=== PATIENT | female | born 1940 | race Caucasian/White ===

== ENCOUNTER 2018-12-18 17:22 | Inpatient (IN) | payer OTHER ==
[~2018-12-18] VITALS: Ht 165.1 cm; Wt 103.2 kg
[~2018-12-18 17:22] MED LIST: ETOMIDATE 40 MG/20 ML ONE; PROPOFOL 10 MG/ML, 100ML IV ONE; VECURONIUM 10 MG ONE
--- NOTE | 2018-12-18 17:30 | NUR ---
TASK RN: MARC CUELLAR FROM W/ CO WORSENING SOB AND DRY COUGH X TODAY. HX OF CHRONIC BRONCHITIS. NO IMPROVEMENT W/ HOME INHALER TODAY. PT ARRIVES W MILD INCREASE IN WOB, FORCED INHILATIONS. PT CALM, SPEAKING IN FULL SENTENCES. RA SPO2 86%, SPO2 TO 96% ON 3L BY NC. NO BASELINE O2 NEEDS. GIVEN DUO NEB AT AND ALBUTEROL W/ REMSA. PT REPORTS IMPROVEMENT IN WOB W/ BREATHING TX. BP/SPO2/ECG MONITOR IN PLACE. SINUS TACH ON MONITOR. EKG COMPLETED BY [facility]. PRIMARY RN, AMBREEN UPDATED.
[2018-12-18] MEDS ORDERED: GLIP5TAB10 PO (17:43)
[2018-12-18] MEDS ORDERED: LEVO25TA4 PO (17:43)
[2018-12-18 18:21] LABS: BASOPHILS # (AUTO) 0.01 x10^3/uL (0-0.1); BASOPHILS % (AUTO) 0 % (0-1); EOSINOPHILS # (AUTO) 0.27 x10^3/uL (0-0.4); EOSINOPHILS % (AUTO) 4 % (1-7); LYMPHOCYTES # (AUTO) 1.17 x10^3/uL (1-3.4); LYMPHOCYTES % (AUTO) 16 % (22-44); MD NO; MEAN CORPUSCULAR HGB CONC 30.6 g/dL (32.4-35.8); MEAN CORPUSCULAR VOLUME 65.3 fL (80-100); MEAN PLATELET VOLUME 8.9 fL (7.4-10.4); MONOCYTES # (AUTO) 0.79 x10^3/uL (0.2-0.8); MONOCYTES % (AUTO) 11 % (2-9); NEUTROPHILS # (AUTO) 5.21 x10^3/uL (1.8-6.8); NEUTROPHILS % (AUTO) 70 % (42-75); PLATELET COUNT 258 x10^3/uL (130-400); RED BLOOD COUNT 4.45 x10^6/uL (3.82-5.3); RED CELL DISTRIBUTION WIDTH 19.9 % (9.6-15.2)
[2018-12-18 18:33] LABS: ALBUMIN 3.3 g/dL (3.4-5.0); ANION GAP 5 mmol/L (5-15); CALCIUM 8.7 mg/dL (8.5-10.1); CHLORIDE 104 mmol/L (98-107); CREATININE 0.93 mg/dL (0.55-1.02)
--- NOTE | 2018-12-18 19:20 | NUR ---
REPORT RECEIVED AND CARE ASSUMED. PT UP TO BR WITH ASSIST AND W/C. ATTEMPTED RA TRIAL PER ERP REQUEST. PT BECAME INCREASINGLY SOB WITH MOVING. RA 83% AFTER RESTING. PLACED BACK ON 3L NC. ERP TO BE UPDATED TO PT STATUS. PT MEDICATED PER MAR WITH PREDNISONE.
--- NOTE | 2018-12-18 20:15 | NUR ---
[facility]
--- NOTE | 2018-12-18 20:39 | NUR ---
UPON RETURN FROM CT. PT MORE SOB AND ANXIOUS. WHEEZES NOW HEARD. PT MORE TACHY ON MONITOR AND HTN. PT STATES SHE DOES HAVE HX OF ANXIETY BUT IS FEELING ANXIOUS BECAUSE SHE CAN'T BREATH. ERP NOTIFIED AND AT BEDSIDE TO RECHECK. ORDERS RECEIVED AND RESP CALLED.
[2018-12-18] MEDS ORDERED: MAGNESIUM SULFATE PMX 2GM/50ML 50 ML ONE (20:42)
[2018-12-18] MEDS ORDERED: ALBUTEROL/IPRATROPIUM 2.5MG/0.5MG, 3 ML ONE (20:44)
[2018-12-18] MEDS ORDERED: ALBUTEROL 0.5%, 20ML ONE (20:51)
[2018-12-18] MEDS ORDERED: LORazepam 2 MG/ML, 1ML ONE (20:55)
[2018-12-18] MEDS: LORazepam 2 MG/ML, 1ML IVPush PRN ×2 (20:59→21:21)
[2018-12-18] MEDS ORDERED: MAGNESIUM SULFATE PMX 2GM/50ML 50 ML IVPB ONE (21:00)
[2018-12-18] MEDS ORDERED: ALBUTEROL/IPRATROPIUM 2.5MG/0.5MG, 3 ML NPPB ONE (21:00)
--- NOTE | 2018-12-18 21:00 | NUR ---
PT STATES NO RELIEF AFTER BREATHING TX--NOW PLACED ON CONTINUOUS TX. DISCUSSED WITH ERP AND ORDER FOR ATIVAN RECEIVED.
--- NOTE | 2018-12-18 21:14 | NUR ---
PT TRANSFERED TO TRAUMA 3. PT PLACED ON BI-PAP. IPAP OF 15 AND EPAP OF 5. TV 500. PT OXYGENATION IMPROVING. PT STILL VERY ANXIOUS. INFORMED. SECOND PIV BEING PLACED AND REPEAT EKG BEING ACQUIRED.
--- NOTE | 2018-12-18 21:15 | NUR ---
PT ON CONTINUOUS BREATHING TX. MEDICATED FOR ANXIETY. CONTINUES TO APPEAR SEVERELY SOB. RESP THERAPIST AT BEDSIDE AND REQUESTING TO PLACE PT ON BIPAP. ERP AWARE AND REQUESTING PT TO BE MOVED TO TRAUMA. REPORT GIVEN TO ALTAGRACIA Tao RN.
--- NOTE | 2018-12-18 21:21 | NUR ---
PT GIVEN 0.5MG OF ATIVAN TO HELP ANXIETY.
[2018-12-18 21:23] LABS: TROPONIN I < 0.015 ng/mL (0.000-0.045)
[2018-12-18] MEDS ORDERED: VECURONIUM 10 MG IVPush ONE (22:00)
[2018-12-18] MEDS ORDERED: ETOMIDATE 40 MG/20 ML IVPush ONE (22:00)
[2018-12-18] MEDS ORDERED: FUROSEMIDE 40 MG/4 ML IVPush ONE (22:00)
[2018-12-18] MEDS ORDERED: PROPOFOL 100 ML IV PRN (22:00)
[2018-12-18] MEDS ORDERED: SODIUM CHLORIDE 0.9% 1,000 ML IV SCH (22:24)
[2018-12-18] MEDS ORDERED: GUAIFENESIN/DM 200-20MG, 10ML UDC PO PRN (22:30)
[2018-12-18] MEDS ORDERED: ACETAMINOPHEN 325 MG TABLET PO PRN (22:30)
[2018-12-18] MEDS ORDERED: ONDANSETRON 2MG/ML, 2ML IVPush PRN (22:30)
[2018-12-18] MEDS ORDERED: POLYETHYLENE GLYCOL 17 GM PACKET PO PRN (22:30)
--- NOTE | 2018-12-18 22:46 | NUR ---
Note omeroone in EDM - 12/18/18 at 2249 by MYORK LATE ENTRY 2140 PT GIVEN PARALYTIC FOR INTUBATION. PT GIVEN 8MG OF VEC AND 20MG OF ETOMIDATE. PT THEN INTUBATED BY WITH 7.5 ET TUBE. PT TUBE SECURED AT 21CM. VENT SETTINGS OF AC, VT 500, RATE OF 16, PEEP OF 5.0, 50% FIO2. PT THEN HAD NG TUBE AND COLLINS PLACED IN PT. PT REPORT CALLED TO GAIL HUTCHISON. TRANSFER WITHOUT COMPLICATIONS. PT PLACED ON PROPAFOL DRIP PRIOR TO TRANSFER AT 10ML/HR.
--- NOTE | 2018-12-18 22:49 | NUR ---
LATE ENTRY 2139 PT GIVEN PARALYTIC FOR INTUBATION. PT GIVEN 8MG OF VEC AND 20MG OF ETOMIDATE. PT THEN INTUBATED BY WITH 7.5 ET TUBE. PT TUBE SECURED AT 21CM. VENT SETTINGS OF AC, VT 500, RATE OF 16, PEEP OF 5.0, 50% FIO2. PT THEN HAD NG TUBE AND COLLINS PLACED IN PT. PT REPORT CALLED TO GAIL HUTCHISON. TRANSFER WITHOUT COMPLICATIONS. PT PLACED ON PROPAFOL DRIP PRIOR TO TRANSFER AT 10ML/HR.
[2018-12-18] MEDS: PROPOFOL 100 ML IV PRN (22:50)
[2018-12-18 22:59] VITALS: BP 152/89
[2018-12-18] MEDS ORDERED: OMNIPAQUE 350 MG/ML, 100ML BOTTLE ONE (23:29)
[2018-12-18] MEDS ORDERED: SENNOSIDES 8.8 MG/5 ML ORAL SOL NG PRN (23:30)
[2018-12-18] MEDS ORDERED: BISACODYL 10 MG SUPP PR PRN (23:30)
[2018-12-18] MEDS ORDERED: CEFTRIAXONE 1,000 MG IVPB SCH (23:30)
[2018-12-18] MEDS ORDERED: SENNA/DOCUSATE TABLET NG PRN (23:30)
[2018-12-18] MEDS ORDERED: LIDOCAINE-MPF 1%, 2ML ENDO PRN (23:30)
[2018-12-18] MEDS ORDERED: LACTULOSE 20 GM/30 ML UDC NG PRN (23:30)
[2018-12-18] MEDS: ALBUTEROL/IPRATROPIUM 2.5MG/0.5MG, 3 ML INLINE SCH (23:30)
[2018-12-18] MEDS ORDERED: GLUCAGON 1 MG IM PRN (23:30)
[2018-12-18] MEDS ORDERED: DEXTROSE 50%, 50ML SYRINGE IVPush PRN (23:30)
[2018-12-18] MEDS ORDERED: PHARMACY MAY ADJ FOR RENAL FX MC SCH (23:30)
[2018-12-18] MEDS ORDERED: DEXTROSE 4 GM TAB.CHEW PO PRN (23:30)
[2018-12-18] MEDS: methylPREDNISolone SOD SUCC 40 MG/ML IVPush SCH (23:48)
[2018-12-18] MEDS: DOXYCYCLINE 100 MG in DEXTROSE 5% 250 ML IV SCH (23:48)
[2018-12-18] MEDS: ENOXAPARIN 40 MG/0.4 ML SQ SCH (23:49)
[2018-12-18] MEDS: CEFTRIAXONE PMX 1GM/50ML 50 ML IV SCH (23:49)
[2018-12-19 00:06] LABS: TROPONIN I 0.229 ng/mL (0.000-0.045)
[2018-12-19 00:12] LABS: THYROID STIMULATING HORMONE 0.021 mIU/L (0.358-3.740)
[2018-12-19] MEDS: FENTANYL PF 100 MCG/2ML IVPush PRN ×2 (00:17→07:36)
[2018-12-19 00:32] LABS: MICROSCOPIC AUTO
[2018-12-19 00:49] LABS: CULTURE INDICATED? YES
[2018-12-19] MEDS: PROPOFOL 100 ML IV PRN ×2 (01:28→06:01)
[2018-12-19] MEDS: ALBUTEROL/IPRATROPIUM 2.5MG/0.5MG, 3 ML INLINE SCH ×2 (02:31→07:15)
[2018-12-19 04:00] VITALS: BP 138/68
[2018-12-19] MEDS: methylPREDNISolone SOD SUCC 40 MG/ML IVPush SCH ×4 (04:21→22:09)
[2018-12-19 04:30] LABS: BASOPHILS # (AUTO) 0.06 x10^3/uL (0-0.1); BASOPHILS % (AUTO) 1 % (0-1); EOSINOPHILS # (AUTO) 0.02 x10^3/uL (0-0.4); EOSINOPHILS % (AUTO) 0 % (1-7); LYMPHOCYTES # (AUTO) 0.47 x10^3/uL (1-3.4); LYMPHOCYTES % (AUTO) 7 % (22-44); MD NO; MEAN CORPUSCULAR HEMOGLOBIN 20.1 pg (27.0-34.8); MEAN CORPUSCULAR HGB CONC 31.1 g/dL (32.4-35.8); MEAN CORPUSCULAR VOLUME 64.5 fL (80-100); MEAN PLATELET VOLUME 8.1 fL (7.4-10.4); MONOCYTES # (AUTO) 0.06 x10^3/uL (0.2-0.8); MONOCYTES % (AUTO) 1 % (2-9); NEUTROPHILS # (AUTO) 6.54 x10^3/uL (1.8-6.8); NEUTROPHILS % (AUTO) 92 % (42-75); PLATELET COUNT 225 x10^3/uL (130-400); RED BLOOD COUNT 4.59 x10^6/uL (3.82-5.3); RED CELL DISTRIBUTION WIDTH 19.6 % (9.6-15.2)
[2018-12-19 04:43] LABS: ANION GAP 8 mmol/L (5-15); CALCIUM 9.1 mg/dL (8.5-10.1); CHLORIDE 100 mmol/L (98-107); CREATININE 1.06 mg/dL (0.55-1.02)
[2018-12-19 04:46] LABS: TROPONIN I 0.491 ng/mL (0.000-0.045)
[2018-12-19] MEDS ORDERED: INSULIN LISPRO 100 UNITS/ML, PEN SQ-INSULIN SCH ×2 (07:00→12:00)
[2018-12-19] MEDS: FAMOTIDINE 20 MG/2 ML IVPush SCH ×2 (07:36→20:40)
[2018-12-19 08:41] LABS: % IRON SATURATION 3 % (20-55); IRON LEVEL 14 mcg/dL (50-170); TOTAL IRON BINDING CAPACITY 441 mcg/dL (250-450)
[2018-12-19 08:44] LABS: FREE T4 (FREE THYROXINE) 1.29 ng/dL (0.76-1.46); TROPONIN I 0.486 ng/mL (0.000-0.045)
[2018-12-19] MEDS ORDERED: BENZONATATE 100 MG CAPSULE PO SCH (09:00)
[2018-12-19] MEDS: SODIUM CHLORIDE FLUSH 10ML SYR IVF SCH ×2 (09:05→20:40)
[2018-12-19] MEDS ORDERED: MEMA10TA PO (10:55)
[2018-12-19] MEDS ORDERED: METO25TA35 PO (10:55)
[2018-12-19] MEDS ORDERED: EXEN2AUT INJ (10:55)
[2018-12-19] MEDS ORDERED: LEVO200T5 PO (10:55)
[2018-12-19] MEDS ORDERED: MILK175T2 PO (10:55)
[2018-12-19] MEDS ORDERED: SERT100T32 PO (10:55)
[2018-12-19] MEDS ORDERED: LEVO1CAP PO (10:55)
[2018-12-19] MEDS ORDERED: BRIM5DRO4 EACHEYE (10:55)
[2018-12-19] MEDS ORDERED: ALPR0.5T6 PO (10:55)
[2018-12-19] MEDS ORDERED: GLIP2.5T3 PO (10:55)
[2018-12-19] MEDS ORDERED: TIMO5DRO33 EACHEYE (10:55)
[2018-12-19] MEDS ORDERED: QUIN20TA17 PO (10:55)
[2018-12-19] MEDS: DOXYCYCLINE 100 MG in DEXTROSE 5% 250 ML IV SCH ×2 (11:39→22:08)
[2018-12-19] MEDS ORDERED: [UNRECOGNIZED DRUG - OTHER] PO SCH (12:30)
[2018-12-19] MEDS ORDERED: LEVOTHYROXINE 200 MCG TABLET PO SCH (12:30)
[2018-12-19] MEDS ORDERED: LEVOMEFOLATE PO SCH (12:30)
[2018-12-19] MEDS ORDERED: ALGAL OIL PO SCH (12:30)
[2018-12-19] MEDS ORDERED: LEVOTHYROXINE MC SCH (12:30)
[2018-12-19] MEDS ORDERED: TIMOLOL EYE MC SCH (12:30)
[2018-12-19] MEDS: LEVOTHYROXINE 200 MCG TABLET PO SCH (12:35)
[2018-12-19] MEDS ORDERED: LEVOTHYROXINE 100 MCG TABLET ONE (12:38)
[2018-12-19] MEDS: METOPROLOL TARTRATE 25 MG TABLET PO SCH (12:41)
[2018-12-19] MEDS: LEVOTHYROXINE 25 MCG TABLET PO SCH (12:41)
[2018-12-19] MEDS: INSULIN LISPRO 100 UNITS/ML, PEN SQ-INSULIN SCH ×2 (16:08→20:46)
[2018-12-19] MEDS: SERTRALINE 100MG TABLET PO SCH (20:41)
[2018-12-19] MEDS: MEMANTINE 10MG TABLET PO SCH (20:42)
[2018-12-19] MEDS ORDERED: TEMPLATE NON-FORMULARY MED. (Timolol Maleate 1 DROP) EACHEYE SCH (21:00)
[2018-12-19] MEDS: BRIMONIDINE TART. OPHTH 0.2%, 5ML EACHEYE SCH (21:08)
[2018-12-19] MEDS: TIMOLOL OPHTH 0.5%, 5ML EACHEYE SCH (21:09)
[2018-12-19] MEDS: ENOXAPARIN 40 MG/0.4 ML SQ SCH (22:08)
[2018-12-19] MEDS ORDERED: SODIUM CHLORIDE 0.9% 1,000 ML IV SCH (22:24)
[2018-12-20] MEDS: CEFTRIAXONE PMX 1GM/50ML 50 ML IV SCH (00:20)
[2018-12-20 04:00] VITALS: BP 182/90
[2018-12-20] MEDS: methylPREDNISolone SOD SUCC 40 MG/ML IVPush SCH (04:09)
[2018-12-20] MEDS: hydrALAzine 20 MG/ML, 1ML IVPush PRN (04:10)
[2018-12-20 04:39] LABS: BASOPHILS % (AUTO) 0 % (0-1); EOSINOPHILS % (AUTO) 0 % (1-7); LYMPHOCYTES # (AUTO) 0.42 x10^3/uL (1-3.4); LYMPHOCYTES % (AUTO) 4 % (22-44); MD NO; MEAN CORPUSCULAR HEMOGLOBIN 19.7 pg (27.0-34.8); MEAN CORPUSCULAR HGB CONC 30.3 g/dL (32.4-35.8); MEAN PLATELET VOLUME 8.3 fL (7.4-10.4); MONOCYTES # (AUTO) 0.46 x10^3/uL (0.2-0.8); MONOCYTES % (AUTO) 4 % (2-9); NEUTROPHILS # (AUTO) 10.43 x10^3/uL (1.8-6.8); NEUTROPHILS % (AUTO) 92 % (42-75); PLATELET COUNT 239 x10^3/uL (130-400); RED BLOOD COUNT 4.69 x10^6/uL (3.82-5.3); RED CELL DISTRIBUTION WIDTH 19.6 % (9.6-15.2)
[2018-12-20] MEDS: LEVOTHYROXINE 25 MCG TABLET PO SCH (05:25)
[2018-12-20] MEDS: LEVOTHYROXINE 200 MCG TABLET PO SCH (05:25)
[2018-12-20 05:52] LABS: ALANINE AMINOTRANSFERASE 16 U/L (12-78); ANION GAP 8 mmol/L (5-15); CALCIUM 8.9 mg/dL (8.5-10.1); CHLORIDE 104 mmol/L (98-107); CREATININE 0.97 mg/dL (0.55-1.02)
[2018-12-20 05:54] LABS: ALKALINE PHOSPHATASE 71 U/L (45-117); BILIRUBIN,TOTAL 0.5 mg/dL (0.2-1.0); TOTAL PROTEIN 6.9 g/dL (6.4-8.2)
[2018-12-20 06:28] LABS: TROPONIN I 0.212 ng/mL (0.000-0.045)
[2018-12-20] MEDS: INSULIN LISPRO 100 UNITS/ML, PEN SQ-INSULIN SCH ×4 (06:50→21:00)
[2018-12-20] MEDS: BRIMONIDINE TART. OPHTH 0.2%, 5ML EACHEYE SCH ×2 (08:15→21:34)
[2018-12-20] MEDS: TIMOLOL OPHTH 0.5%, 5ML EACHEYE SCH ×2 (08:15→21:34)
[2018-12-20] MEDS: FAMOTIDINE 20 MG/2 ML IVPush SCH ×2 (08:15→21:37)
[2018-12-20] MEDS: METOPROLOL TARTRATE 25 MG TABLET PO SCH (08:15)
[2018-12-20] MEDS: SERTRALINE 100MG TABLET PO SCH ×2 (08:15→21:38)
[2018-12-20] MEDS: MEMANTINE 10MG TABLET PO SCH ×2 (08:16→21:38)
[2018-12-20] MEDS: SODIUM CHLORIDE FLUSH 10ML SYR IVF SCH ×2 (08:16→21:39)
[2018-12-20 10:08] VITALS: BP 124/70
[2018-12-20] MEDS: DOXYCYCLINE 100 MG in DEXTROSE 5% 250 ML IV SCH ×2 (11:09→23:07)
[2018-12-20 13:06] VITALS: BP 125/73
[2018-12-20 19:24] VITALS: BP 155/78
[2018-12-20] MEDS: ENOXAPARIN 40 MG/0.4 ML SQ SCH (21:38)
[2018-12-21] MEDS: CEFTRIAXONE PMX 1GM/50ML 50 ML IV SCH (00:18)
[2018-12-21 02:00] VITALS: BP 151/80
[2018-12-21] MEDS: ALBUTEROL SULFATE 2.5 MG/3 ML NPPB PRN ×3 (03:10→10:45)
[2018-12-21 04:49] LABS: BASOPHILS # (AUTO) 0.02 x10^3/uL (0-0.1); BASOPHILS % (AUTO) 0 % (0-1); EOSINOPHILS % (AUTO) 0 % (1-7); LYMPHOCYTES # (AUTO) 0.61 x10^3/uL (1-3.4); LYMPHOCYTES % (AUTO) 5 % (22-44); MD NO; MEAN CORPUSCULAR HEMOGLOBIN 19.9 pg (27.0-34.8); MEAN CORPUSCULAR HGB CONC 30.5 g/dL (32.4-35.8); MEAN CORPUSCULAR VOLUME 65.3 fL (80-100); MEAN PLATELET VOLUME 8.2 fL (7.4-10.4); MONOCYTES # (AUTO) 1.17 x10^3/uL (0.2-0.8); MONOCYTES % (AUTO) 9 % (2-9); NEUTROPHILS # (AUTO) 11.02 x10^3/uL (1.8-6.8); NEUTROPHILS % (AUTO) 86 % (42-75); PLATELET COUNT 238 x10^3/uL (130-400); RED CELL DISTRIBUTION WIDTH 19.9 % (9.6-15.2)
[2018-12-21] MEDS ORDERED: MORPHINE SULFATE 4 MG/ML, 1ML ONE (05:42)
[2018-12-21] MEDS ORDERED: FUROSEMIDE 40 MG/4 ML ONE (05:42)
[2018-12-21] MEDS ORDERED: FUROSEMIDE 40 MG/4 ML IV ONE (06:00)
[2018-12-21] MEDS ORDERED: MORPHINE SULFATE 4 MG/ML, 1ML IVPush ONE (06:00)
[2018-12-21] MEDS ORDERED: FUROSEMIDE 100 MG/10 ML IV ONE (06:00)
[2018-12-21] MEDS: LEVOTHYROXINE 200 MCG TABLET PO SCH (08:05)
[2018-12-21] MEDS: LEVOTHYROXINE 25 MCG TABLET PO SCH (08:05)
[2018-12-21] MEDS: INSULIN LISPRO 100 UNITS/ML, PEN SQ-INSULIN SCH ×4 (08:13→20:44)
[2018-12-21] MEDS: FAMOTIDINE 20 MG/2 ML IVPush SCH ×2 (09:54→20:45)
[2018-12-21] MEDS: methylPREDNISolone SOD SUCC 125 MG/2 ML IVPush SCH ×2 (09:54→16:41)
[2018-12-21] MEDS: SERTRALINE 100MG TABLET PO SCH ×2 (09:54→20:45)
[2018-12-21] MEDS: METOPROLOL TARTRATE 25 MG TABLET PO SCH (09:54)
[2018-12-21] MEDS: SODIUM CHLORIDE FLUSH 10ML SYR IVF SCH ×2 (09:55→20:46)
[2018-12-21] MEDS: MEMANTINE 10MG TABLET PO SCH ×2 (09:55→21:00)
[2018-12-21] MEDS: BRIMONIDINE TART. OPHTH 0.2%, 5ML EACHEYE SCH ×2 (09:56→20:46)
[2018-12-21] MEDS: TIMOLOL OPHTH 0.5%, 5ML EACHEYE SCH ×2 (09:56→20:46)
[2018-12-21 11:26] LABS: FIO2 40 %
[2018-12-21] MEDS: DOXYCYCLINE 100 MG in DEXTROSE 5% 250 ML IV SCH ×2 (11:27→22:47)
[2018-12-21] MEDS: ALBUTEROL SULFATE 2.5 MG/3 ML NPPB SCH ×2 (15:00→20:20)
[2018-12-21] MEDS: POTASSIUM CHLORIDE 20 MEQ TAB.ER.PRT PO SCH (16:41)
[2018-12-21] MEDS: FUROSEMIDE 20 MG/2 ML IV SCH (16:41)
[2018-12-21] MEDS: ENOXAPARIN 40 MG/0.4 ML SQ SCH (22:48)
[2018-12-22] MEDS: CEFTRIAXONE PMX 1GM/50ML 50 ML IV SCH (00:44)
[2018-12-22] MEDS: methylPREDNISolone SOD SUCC 125 MG/2 ML IVPush SCH ×3 (01:15→18:33)
[2018-12-22 04:29] LABS: BASOPHILS % (AUTO) 0 % (0-1); EOSINOPHILS % (AUTO) 0 % (1-7); LYMPHOCYTES # (AUTO) 0.31 x10^3/uL (1-3.4); LYMPHOCYTES % (AUTO) 5 % (22-44); MD NO; MEAN CORPUSCULAR HEMOGLOBIN 19.2 pg (27.0-34.8); MEAN CORPUSCULAR VOLUME 65.5 fL (80-100); MEAN PLATELET VOLUME 8.1 fL (7.4-10.4); MONOCYTES # (AUTO) 0.33 x10^3/uL (0.2-0.8); MONOCYTES % (AUTO) 6 % (2-9); NEUTROPHILS # (AUTO) 5.14 x10^3/uL (1.8-6.8); NEUTROPHILS % (AUTO) 89 % (42-75); PLATELET COUNT 198 x10^3/uL (130-400); RED BLOOD COUNT 4.65 x10^6/uL (3.82-5.3)
[2018-12-22 04:54] LABS: MEAN CORPUSCULAR HGB CONC 29.4 g/dL (32.4-35.8)
[2018-12-22 05:05] VITALS: BP 142/76
[2018-12-22] MEDS: LEVOTHYROXINE 200 MCG TABLET PO SCH (05:44)
[2018-12-22] MEDS: LEVOTHYROXINE 25 MCG TABLET PO SCH (06:10)
[2018-12-22] MEDS: ALBUTEROL SULFATE 2.5 MG/3 ML NPPB SCH ×4 (07:04→20:00)
[2018-12-22] MEDS: INSULIN LISPRO 100 UNITS/ML, PEN SQ-INSULIN SCH ×4 (07:36→20:40)
[2018-12-22] MEDS: FUROSEMIDE 20 MG/2 ML IV SCH ×2 (08:50→18:33)
[2018-12-22] MEDS: FAMOTIDINE 20 MG/2 ML IVPush SCH ×2 (08:50→20:39)
[2018-12-22] MEDS: POTASSIUM CHLORIDE 20 MEQ TAB.ER.PRT PO SCH ×2 (08:50→18:33)
[2018-12-22] MEDS: SERTRALINE 100MG TABLET PO SCH ×2 (08:50→20:39)
[2018-12-22] MEDS: MEMANTINE 10MG TABLET PO SCH ×2 (08:51→20:39)
[2018-12-22] MEDS: METOPROLOL TARTRATE 25 MG TABLET PO SCH (08:51)
[2018-12-22] MEDS: SODIUM CHLORIDE FLUSH 10ML SYR IVF SCH ×2 (08:51→20:39)
[2018-12-22] MEDS: TIMOLOL OPHTH 0.5%, 5ML EACHEYE SCH ×2 (08:53→20:41)
[2018-12-22] MEDS: BRIMONIDINE TART. OPHTH 0.2%, 5ML EACHEYE SCH ×2 (08:53→20:41)
[2018-12-22 09:18] LABS: ANION GAP 7 mmol/L (5-15); CALCIUM 9.1 mg/dL (8.5-10.1); CHLORIDE 100 mmol/L (98-107); CREATININE 0.93 mg/dL (0.55-1.02)
[2018-12-22] MEDS: DOXYCYCLINE 100 MG in DEXTROSE 5% 250 ML IV SCH ×2 (11:19→23:54)
[2018-12-22 14:28] VITALS: BP 147/71
[2018-12-22] MEDS: FERROUS SULFATE 325 MG TABLET PO SCH (18:33)
[2018-12-22 20:00] VITALS: BP 129/76
[2018-12-22] MEDS: ENOXAPARIN 40 MG/0.4 ML SQ SCH (20:43)
[2018-12-23] MEDS: methylPREDNISolone SOD SUCC 125 MG/2 ML IVPush SCH ×2 (01:58→08:46)
[2018-12-23] MEDS: CEFTRIAXONE PMX 1GM/50ML 50 ML IV SCH (01:58)
[2018-12-23 02:00] VITALS: BP 159/88
[2018-12-23] MEDS: LEVOTHYROXINE 25 MCG TABLET PO SCH (06:02)
[2018-12-23] MEDS: LEVOTHYROXINE 200 MCG TABLET PO SCH (06:03)
[2018-12-23 07:40] VITALS: BP 169/95
[2018-12-23] MEDS: ALBUTEROL SULFATE 2.5 MG/3 ML NPPB SCH ×4 (07:52→20:00)
[2018-12-23] MEDS: BRIMONIDINE TART. OPHTH 0.2%, 5ML EACHEYE SCH ×2 (08:35→21:20)
[2018-12-23] MEDS: FERROUS SULFATE 325 MG TABLET PO SCH ×2 (08:38→17:44)
[2018-12-23] MEDS: SERTRALINE 100MG TABLET PO SCH ×2 (08:39→21:21)
[2018-12-23] MEDS: POTASSIUM CHLORIDE 20 MEQ TAB.ER.PRT PO SCH ×2 (08:39→17:44)
[2018-12-23] MEDS: METOPROLOL TARTRATE 25 MG TABLET PO SCH (08:40)
[2018-12-23] MEDS: MEMANTINE 10MG TABLET PO SCH ×2 (08:40→21:00)
[2018-12-23] MEDS: INSULIN LISPRO 100 UNITS/ML, PEN SQ-INSULIN SCH ×4 (08:41→21:24)
[2018-12-23] MEDS: FAMOTIDINE 20 MG/2 ML IVPush SCH (08:42)
[2018-12-23] MEDS: SODIUM CHLORIDE FLUSH 10ML SYR IVF SCH ×2 (08:46→21:20)
[2018-12-23] MEDS: FUROSEMIDE 20 MG/2 ML IV SCH ×2 (08:49→17:44)
[2018-12-23] MEDS: TIMOLOL OPHTH 0.5%, 5ML EACHEYE SCH ×2 (08:49→21:20)
[2018-12-23 13:55] VITALS: BP 114/65
[2018-12-23 14:13] LABS: HEMOGLOBIN A1C 7.6 % (4.2-6.3)
[2018-12-23 19:15] VITALS: BP 165/91
[2018-12-23] MEDS ORDERED: methylPREDNISolone SOD SUCC 125 MG/2 ML IVPush SCH (21:00)
[2018-12-23] MEDS: DOXYCYCLINE 100MG TABLET PO SCH (21:20)
[2018-12-23] MEDS: ENOXAPARIN 40 MG/0.4 ML SQ SCH (21:22)
[2018-12-23] MEDS: CEFTRIAXONE PMX 2GM/50ML 50 ML IV SCH (21:25)
[2018-12-24 03:06] VITALS: BP 171/101
[2018-12-24 03:30] VITALS: BP 170/96
[2018-12-24 03:33] VITALS: BP 173/100
[2018-12-24] MEDS: hydrALAzine 20 MG/ML, 1ML IVPush PRN (03:36)
[2018-12-24] MEDS: LEVOTHYROXINE 200 MCG TABLET PO SCH (06:20)
[2018-12-24] MEDS: LEVOTHYROXINE 25 MCG TABLET PO SCH (06:20)
[2018-12-24 06:43] VITALS: BP 133/79
[2018-12-24] MEDS: INSULIN LISPRO 100 UNITS/ML, PEN SQ-INSULIN SCH ×4 (07:00→22:16)
[2018-12-24] MEDS: ALBUTEROL SULFATE 2.5 MG/3 ML NPPB SCH ×4 (07:25→22:10)
[2018-12-24] MEDS: BRIMONIDINE TART. OPHTH 0.2%, 5ML EACHEYE SCH ×2 (07:54→22:15)
[2018-12-24] MEDS: POTASSIUM CHLORIDE 20 MEQ TAB.ER.PRT PO SCH ×2 (07:56→16:28)
[2018-12-24] MEDS: FUROSEMIDE 20 MG/2 ML IV SCH (07:56)
[2018-12-24] MEDS: MEMANTINE 10MG TABLET PO SCH ×2 (07:56→21:00)
[2018-12-24] MEDS: METOPROLOL TARTRATE 25 MG TABLET PO SCH (07:57)
[2018-12-24] MEDS: DOXYCYCLINE 100MG TABLET PO SCH (07:57)
[2018-12-24] MEDS: TIMOLOL OPHTH 0.5%, 5ML EACHEYE SCH ×2 (07:57→22:16)
[2018-12-24] MEDS: SERTRALINE 100MG TABLET PO SCH ×2 (07:57→22:17)
[2018-12-24] MEDS: GLIPizide ER 5 MG TABLET PO SCH (07:57)
[2018-12-24] MEDS: FERROUS SULFATE 325 MG TABLET PO SCH ×2 (07:57→16:28)
[2018-12-24] MEDS: SODIUM CHLORIDE FLUSH 10ML SYR IVF SCH ×2 (07:58→22:16)
[2018-12-24 15:40] VITALS: BP 121/72
[2018-12-24 19:59] VITALS: BP 118/80
[2018-12-24] MEDS: CEFTRIAXONE PMX 2GM/50ML 50 ML IV SCH (22:04)
[2018-12-24] MEDS: ENOXAPARIN 40 MG/0.4 ML SQ SCH (22:16)
[2018-12-25 00:45] VITALS: BP 157/93
[2018-12-25 05:38] LABS: ANION GAP 6 mmol/L (5-15); CALCIUM 8.9 mg/dL (8.5-10.1); CHLORIDE 102 mmol/L (98-107); CREATININE 0.82 mg/dL (0.55-1.02); MEAN CORPUSCULAR HEMOGLOBIN 19.2 pg (27.0-34.8); MEAN CORPUSCULAR HGB CONC 29.5 g/dL (32.4-35.8); MEAN CORPUSCULAR VOLUME 65.2 fL (80-100); MEAN PLATELET VOLUME 8.4 fL (7.4-10.4); PLATELET COUNT 208 x10^3/uL (130-400); RED BLOOD COUNT 5.52 x10^6/uL (3.82-5.3)
[2018-12-25] MEDS: LEVOTHYROXINE 25 MCG TABLET PO SCH (05:58)
[2018-12-25] MEDS: LEVOTHYROXINE 200 MCG TABLET PO SCH (05:58)
[2018-12-25 06:13] LABS: ANISOCYTOSIS 1+; BASOPHILS # (AUTO) 0.02 x10^3/uL (0-0.1); BASOPHILS % (AUTO) 0 % (0-1); EOSINOPHILS # (AUTO) 0.13 x10^3/uL (0-0.4); EOSINOPHILS % (AUTO) 2 % (1-7); LYMPHOCYTES # (AUTO) 1.85 x10^3/uL (1-3.4); LYMPHOCYTES % (AUTO) 20 % (22-44); MD MORPH REVIEW ONLY; MICROCYTOSIS 1+; MONOCYTES % (AUTO) 11 % (2-9); NEUTROPHILS # (AUTO) 6.22 x10^3/uL (1.8-6.8); NEUTROPHILS % (AUTO) 67 % (42-75)
[2018-12-25 06:14] LABS: <PLATELET ESTIMATE> ADEQUATE; <PLT MORPHOLOGY> NORMAL PLT MORPH; OVALOCYTES 1+
[2018-12-25 06:15] LABS: PMNS WITH VACUOLES 1+
[2018-12-25] MEDS: ALBUTEROL SULFATE 2.5 MG/3 ML NPPB SCH ×2 (07:00→10:10)
[2018-12-25] MEDS: INSULIN LISPRO 100 UNITS/ML, PEN SQ-INSULIN SCH ×2 (07:00→12:39)
[2018-12-25 08:51] VITALS: BP_SYST 114; BP_SYST 14; BP_SYST 145; BP_DIAS 90
[2018-12-25] MEDS: METOPROLOL TARTRATE 25 MG TABLET PO SCH (09:26)
[2018-12-25] MEDS: SERTRALINE 100MG TABLET PO SCH (09:26)
[2018-12-25] MEDS: FERROUS SULFATE 325 MG TABLET PO SCH (09:26)
[2018-12-25] MEDS: GLIPizide ER 5 MG TABLET PO SCH (09:26)
[2018-12-25] MEDS: POTASSIUM CHLORIDE 20 MEQ TAB.ER.PRT PO SCH (09:26)
[2018-12-25] MEDS: MEMANTINE 10MG TABLET PO SCH (09:26)
[2018-12-25] MEDS: SODIUM CHLORIDE FLUSH 10ML SYR IVF SCH (09:27)
[2018-12-25] MEDS: BRIMONIDINE TART. OPHTH 0.2%, 5ML EACHEYE SCH (09:27)
[2018-12-25] MEDS: TIMOLOL OPHTH 0.5%, 5ML EACHEYE SCH (09:28)
[2018-12-25] MEDS ORDERED: FURO-92 PO (10:43)
== END 2018-12-25 13:31 | disposition home health service (06) | DRG 208 ==
LOC: ED 18:17 → SUATTDRO 21:25 → EDIP 22:16 → CCU 22:39 → 4NOR 12-20 10:01 → CCU 12-21 06:32 → 3NE 12-22 14:03
PROVIDERS: ADMIT Hospitalist; ATTEND Hospitalist
PROC: 0T9B70Z Drainage of Bladder with Drainage Device, Via Natural or Artificial Opening (ICD-10-PCS; principal; 2018-12-18)
PROC: 5A1935Z Respiratory Ventilation, Less than 24 Consecutive Hours (ICD-10-PCS; 2018-12-18)
PROC: 5A09357 Assistance with Respiratory Ventilation, Less than 24 Consecutive Hours, Continuous Positive Airway Pressure (ICD-10-PCS; 2018-12-18)
PROC: 0BH18EZ Insertion of Endotracheal Airway into Trachea, Via Natural or Artificial Opening Endoscopic (ICD-10-PCS; 2018-12-18)
PROC: 5A09357 Assistance with Respiratory Ventilation, Less than 24 Consecutive Hours, Continuous Positive Airway Pressure (ICD-10-PCS; 2018-12-22)
DX: J96.01 Acute respiratory failure with hypoxia (principal); J44.0 Chronic obstructive pulmonary disease with (acute) lower respiratory infection; Z99.11 Dependence on respirator [ventilator] status; M48.54XA Collapsed vertebra, not elsewhere classified, thoracic region, initial encounter for fracture; J81.1 Chronic pulmonary edema; N39.0 Urinary tract infection, site not specified; J96.02 Acute respiratory failure with hypercapnia; I11.9 Hypertensive heart disease without heart failure; J20.9 Acute bronchitis, unspecified; G47.33 Obstructive sleep apnea (adult) (pediatric); E11.9 Type 2 diabetes mellitus without complications; F03.90 Unspecified dementia, unspecified severity, without behavioral disturbance, psychotic disturbance, mood disturbance, and anxiety; B96.20 Unspecified Escherichia coli [E. coli] as the cause of diseases classified elsewhere; E89.0 Postprocedural hypothyroidism; H40.9 Unspecified glaucoma; Z90.89 Acquired absence of other organs; Z87.891 Personal history of nicotine dependence; Z91.19 Patient's noncompliance with other medical treatment and regimen; Z98.1 Arthrodesis status; Z90.710 Acquired absence of both cervix and uterus; Z99.81 Dependence on supplemental oxygen; I25.2 Old myocardial infarction
CPT/HCPCS: 31500; 36415; 36600; 51702; 84145; 99291; 99292; J3490; J7613; J7620; 0399T; 71045; 71046; 71275; 80048; 80053; 81001; 82040; 82728; 82803; 82962; 83036; 83540; 83550; 83605; 83735; 83880; 84100; 84439; 84443; 84478; 84481; 84484; 85025; 87070; 87077; 87081; 87086; 87186; 87205; 93005; 93306; 94002; 94003; 94640; 94644; 94660; 96365; 96366; 96375; G0378; J0696; J1650; J1940; J2704; J3010; J7060; Q9967; J0360; J1815; J2060; J2920; J2930; J3475; J7030; J7512

== ENCOUNTER 2019-05-15 14:36 | Outpatient (CLI) | payer MEDICARE ==
[~2019-05-15 14:36] MED LIST changes: +ALPR0.5T6 PO; +BRIM5DRO4 EACHEYE; -ETOMIDATE 40 MG/20 ML ONE; +EXEN2AUT INJ; +FURO-92 PO; +GLIP2.5T3 PO; +GLIP5TAB10 PO; +LEVO1CAP PO; +LEVO200T5 PO; +LEVO25TA4 PO; +MEMA10TA PO; +METO25TA35 PO; +MILK175T2 PO; -PROPOFOL 10 MG/ML, 100ML IV ONE; +QUIN20TA17 PO; +SERT100T32 PO; +TIMO5DRO33 EACHEYE; -VECURONIUM 10 MG ONE
== END 2019-05-15 23:59 | disposition home or self-care (01) ==
LOC: CVU 14:36
PROVIDERS: ATTEND Internal Medicine Cardiovascular Disease
DX: I83.893 Varicose veins of bilateral lower extremities with other complications (principal); I10 Essential (primary) hypertension
CPT/HCPCS: 93970

== ENCOUNTER 2019-10-10 13:15 | Outpatient (CLI) | payer MEDICARE ==
[~2019-10-10 13:15] MED LIST changes: +REGADENOSON 0.4 MG/5 ML SYRINGE ONE
== END 2019-10-10 23:59 | disposition home or self-care (01) ==
LOC: CFH 13:15
PROVIDERS: ATTEND Internal Medicine Cardiovascular Disease
DX: I50.9 Heart failure, unspecified (principal); R06.02 Shortness of breath
CPT/HCPCS: 78452; 93017; A9502; J2785

== ENCOUNTER → 2020-07-10 | Outpatient (CLI) | payer MEDICARE ==
[~2020-07-10] MED LIST changes: -REGADENOSON 0.4 MG/5 ML SYRINGE ONE
== END | disposition home or self-care (01) ==
LOC: CFH 15:12
PROVIDERS: ATTEND Internal Medicine Cardiovascular Disease
DX: I35.8 Other nonrheumatic aortic valve disorders (principal); R06.02 Shortness of breath; R60.9 Edema, unspecified
CPT/HCPCS: 93306